=== PATIENT | female | born 1970 | race African-American/Black ===

== ENCOUNTER 2025-02-14 20:55 | Emergency (ER) | payer OTHER ==
[2025-02-14] MEDS ORDERED: Lidocaine Viscous Sol 2% 15 ml UD Cup ONE (22:07)
[2025-02-14] MEDS ORDERED: Milk Of Magnesia 30 ML UDCUP ONE (22:07)
[2025-02-14 22:19] LABS: #Basophils Less than 0.03 10x3/uL (0.0-0.2); #Eosinophils 0.15 10x3/uL (0.0-0.5); #Monocytes 0.46 10x3/uL (0.0-1.1); #Neutrophils 1.90 10x3/uL (1.5-8.4); %Basophils 0.4 % (0.0-2.0); %Eosinophils 2.7 % (0.0-6.0); %Lymphocytes 54.0 % (18.0-47.0); %Monocytes 8.4 % (0.0-10.0); %Neutrophils 34.5 % (40.0-75.0); Hematocrit 38.7 % (34.9-44.5); Hemoglobin 12.5 g/dL (12.0-15.5); Mean Corpuscular Hemoglobin 28.0 pg (27.0-33.0); Mean Corpuscular Volume 86.8 fL (81.6-98.3); Platelet Count 195 10x3/uL (150-450); Red Blood Cell (RBC) Count 4.46 10x6/uL (3.90-5.03); White Blood Cell (WBC) Count 5.50 10x3/uL (3.5-10.5)
[2025-02-14 22:34] LABS: ALT (SGPT) 21 U/L (Less than 34); AST (SGOT) 22 U/L (11-34); Albumin 3.9 g/dL (3.1-4.5); Alkaline Phosphatase 83 U/L (40-110); Anion Gap 16 mmol/L (10-20); BUN (Urea Nitrogen) 18 mg/dL (9.8-20.1); Bilirubin, Total 0.3 mg/dL (0.3-1.2); Calc. Creatinine Clearance 0 mL/min (70-130); Calcium 9.5 mg/dL (7.8-10.44); Carbon Dioxide 24 mmol/L (22-29); Chloride 106 mmol/L (98-107); Globulin 3.9 g/dL (2.4-3.5); Glucose 97 mg/dL (70-105); Lipase 60 U/L (8-78); Potassium 4.7 mmol/L (3.5-5.1); Sodium 141 mmol/L (136-145)
[2025-02-14 22:40] LABS: Troponin I Less than 0.010 ng/mL (< 0.028)
== END 2025-02-14 23:02 | disposition home or self-care (01) ==
LOC: CSHERS 20:55
DX: K29.00 Acute gastritis without bleeding (principal); E11.9 Type 2 diabetes mellitus without complications
CPT/HCPCS: 36415; 71045; 80053; 83690; 84484; 85025; 93005